=== PATIENT | male | born 1990 | race Caucasian/White ===

== ENCOUNTER 2020-06-20 10:55 | Emergency (ER) | payer OTHER, SELFPAY ==
[2020-06-20 11:11] VITALS: BP 123/76; PULSE 79; RESP 14; TEMP 36.9; O2SAT 99; BMI 22.8
[2020-06-20 12:04] LABS: COVID19 -Nasal RAPID Negative (Negative)
[2020-06-20 12:17] VITALS: BP 113/62; PULSE 72; RESP 18; O2SAT 99
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
== END 2020-06-20 12:25 | disposition home or self-care (01) ==
PROVIDERS: Emergency Medicine; Emergency Provider Nurse Practitioner
DX: Z03.818 Encounter for observation for suspected exposure to other biological agents ruled out (principal)
CPT/HCPCS: 36415; 87635; 99282

== ENCOUNTER 2020-12-04 22:38 | Emergency (ER) | payer OTHER, SELFPAY ==
--- NOTE | 2020-12-04 22:39 | ED.ABDPAIN ---
HPI - Abdominal Pain General Chief Complaint: Abdominal Pain Stated Complaint: lower right abdominal pain x3-4 days Time Seen by Provider: 12/04/20 22:38 Source: patient Mode of arrival: Ambulatory Limitations: no limitations History of Present Illness HPI narrative: 30-year-old male nonsmoker with noncontributory medical history presents with a chief complaint of severe right lower quadrant pain that has been gradually worsening for the past 3 days. He states there is very little provocation or palliation and admits that the pain radiates down into his testicle and around to his right flank. He states it is sharp and stabbing and largely persistent but with episodes of unprovoked increased severity. He denies any history of the same, recent injury, nausea, vomiting, change in appetite nor fever or chills. He denies urinary complaints such as dysuria, frequency, urgency or hematuria. MD complaint: abdominal pain and flank pain Onset (ago): day(s) Pain Consistency: constant and intermittent Location: RLQ Severity: severe Severity scale (1-10): 8 Quality: stabbing and sharp Radiation: R flank Relieving factors: nothing Exacerbating factors: nothing Associated symptoms: denies other symptoms Related Data Home Medications Medication Instructions Recorded Confirmed [ZERTE] #0 05/12/16 Previous Rx's Medication Instructions Recorded polyvinyl alcohol-povidone 1 drp OPHTH PRN PRN #15 ml 05/12/16 [Artificial Tears(pvalch-povid)] ondansetron HCl [Zofran] 4 mg PO Q4HP PRN #20 tab 10/19/16 hydrocodone-acetaminophen 1 tab PO Q4-6H PRN #10 tab 12/05/20 ketorolac 10 mg PO Q6H PRN #14 tab 12/05/20 ondansetron 4 mg PO TID-QID PRN #10 tab 12/05/20 Allergies Allergy/AdvReac Type Severity Reaction Status Date / Time No Known Drug Allergies Allergy Verified 12/04/20 22:54 Review of Systems Constitutional Constitutional: Denies chills, Denies fatigue, Denies fever(s), Denies frequent falls, Denies lethargy and Denies weakness Eyes Eyes: Denies change in vision, Denies eye discharge, Denies irritation and Denies loss of vision ENT Ears, Nose, Mouth, and Throat: Denies change in voice, Denies dizziness, Denies neck pain, Denies sore throat and Denies throat swelling Cardiovascular Cardiovascular: Denies chest pain, Denies irregular heart rhythm, Denies lightheadedness, Denies palpitations, Denies dyspnea, Denies dyspnea on exertion and Denies orthopnea Respiratory Respiratory: Denies cough, Denies dyspnea, Denies dyspnea on exertion and Denies wheezing Gastrointestinal Gastrointestinal: Reports abdominal pain, Denies change in bowel habits, Denies diarrhea, Denies nausea and Denies vomiting Genitourinary Genitourinary: Reports flank pain Genitourinary: Reports flank pain Musculoskeletal Musculoskeletal: Denies neck pain and Denies numbness Integumentary/Breasts Skin/Breast: Denies pruritus, Denies erythema, Denies rash and Denies wounds Neurologic Neurologic: Denies behavioral changes, Denies confusion, Denies dizziness, Denies frequent falls, Denies loss of vision, Denies numbness and Denies weakness Psychiatric Psychiatric: Denies anxiety, Denies behavioral changes, Denies confusion, Denies depression, Denies homicidal ideation and Denies suicidal ideation Endocrine Endocrine: Denies fatigue, Denies flushing and Denies palpitations Hematologic/Lymphatic Hematologic/Lymphatic: Denies easy bruising Allergic/Immunologic Allergic/Immunologic: Denies urticaria, Denies throat swelling and Denies wheezing Patient History Medical History (Updated 12/05/20 @ 00:39 by Rajendra De La Cruz DO) Allergic rhinitis Social History Smoking Status: Never smoker Smoking Status: Never smoker alcohol intake frequency: 0-2 drinks per day Substance Use Type: does not use Exam Narrative Exam Narrative: GENERAL: [30] year old patient appears stated age. Well-nourished, well-developed patient, in mild distress. HEAD: Atraumatic. Normocephalic. EYES: Pupils equal round and reactive. Extraocular motions intact. No scleral icterus. No injection or drainage. ENT: Nose without bleeding, purulent drainage. Throat without erythema, tonsillar hypertrophy or exudate. Airway patent. NECK: Trachea midline. Non tender CARDIOVASCULAR: Regular rate and rhythm without murmurs, gallops, or rubs. RESPIRATORY: Clear to auscultation. Breath sounds equal bilaterally. No wheezes, rales, or rhonchi. GASTROINTESTINAL: Abdomen soft, non-tender, nondistended. : No painful bulging or change with cough when groin examined with patient standing. No testicular pain, swelling, redness EXTREMITIES: No edema or joint tenderness. BACK: Nontender without deformity or crepitance. No flank tenderness. NEURO: AOx3. SKIN: No rash or erythema of visible areas Initial Vital Signs Initial Vital Signs: Vital Signs Temperature 98 F 12/04/20 22:55 Pulse Rate 74 12/04/20 22:55 Respiratory Rate 14 12/04/20 22:55 Blood Pressure 129/70 12/04/20 22:55 Pulse Oximetry 99 12/04/20 22:55 Course Orders Ordered: ED Orders 12/04/20 22:50 Complete Blood Count AUTO DIFF Stat Comprehensive Metabolic Panel Stat 12/04/20 23:13 CT kidney ureter bladder (KUB) Stat Hydrocodone Bitart/Acetaminophen (Hydrocodone/Acet 5/325 Prepack) 1 bottle MISC SEEINSTR ONE Stop: 12/05/20 00:49 Ondansetron HCl (Ondansetron 4 Mg Odt Prepack) 1 bottle MISC SEEINSTR ONE Stop: 12/05/20 00:49 Discontinued Medications Sodium Chloride (Normal Saline 0.9%) 1,000 mls @ 1,000 mls/hr IV BOLUS ONE Stop: 12/05/20 00:07 Last Admin: 12/04/20 23:25 Dose: 1,000 mls/hr Documented by: JESSICA Ketorolac Tromethamine (Ketorolac 60 Mg/2 Ml Vial) 15 mg IV NOW ONE Stop: 12/04/20 23:14 Last Admin: 12/04/20 23:24 Dose: 15 mg Documented by: JESSICA Vital Signs Vital signs: Vital Signs - 8 hr 12/04/20 22:55 12/04/20 23:00 Temperature 98 F Pulse Rate 76 74 Respiratory Rate 17 19 Blood Pressure 129/70 119/70 Pulse Oximetry 99 98 MDM - Abdominal Pain Lab Data Result diagrams: 12/04/20 22:50 12/04/20 22:50 Labs: Lab Results 12/04/20 12/04/20 Range/Units 22:50 22:50 WBC 7.5 (4.5-11.0) X10^3/uL RBC 4.74 (4.5-5.9) X10^6/uL Hgb 15.2 (13.5-17.5) g/dL Hct 43.4 (41-53) % MCV 91.5 (80-100) fL MCH 32.1 (26-34) PG MCHC 35.0 (30-36) % RDW 12.9 (11.6-14.8) % Plt Count 224 (150-400) X10^3/uL Neut % (Auto) 50.4 (50-75) % Lymph % (Auto) 37.1 (25-40) % [place] % (Auto) 7.2 (3-14) % Eos % (Auto) 4.8 H (2-4) % Baso % (Auto) 0.5 (0-2) % Neut # (Auto) 3800 (0693-8621) /uL Lymph # (Auto) 2800 (0928-7323) /uL [place] # (Auto) 500 (0-900) /uL Eos # (Auto) 400 (0-450) /uL Baso # (Auto) 0 (0-100) /uL Sodium 138 (137-145) mmol/L Potassium 3.9 (3.4-5.1) mmol/L Chloride 103 (98-107) mmol/L Carbon Dioxide 27 (22-32) mmol/L BUN 14 (9-20) mg/dL Creatinine 0.87 (0.66-1.25) mg/dL Estimated GFR > 60.0 (>60) mL/min BUN/Creatinine Ratio 16.1 (6-22) Glucose 89 (70-100) mg/dL Calcium 9.7 (8.4-10.2) mg/dL Total Bilirubin 0.4 (0.2-1.3) mg/dL AST 44 (17-59) IU/L ALT 32 (<50) IU/L Alkaline Phosphatase 75 (38-126) U/L Total Protein 7.4 (6.3-8.2) g/dL Albumin 4.4 (3.5-5.0) g/dL Globulin 3.0 (1.7-4.1) g/dL Albumin/Globulin Ratio 1.5 (1.0-2.8) Point of care testing: Urine Dip Bedside Urine Glucose Negative Bedside Urine Bilirubin - Negative Bedside Urine Ketone - Negative Urine Specific [place] 1.020 Bedside Urine Occult Blood - Negative Bedside Urine pH 7.5 Bedside Urine Protein +/- 15 Bedside Urine Urobilinogen - Negative Bedside Urine Nitrite - Negative Bedside Urine Leukocytes - Negative Esterase Imaging Data CT scan - abdomen/pelvis: Radiologist's Impression: No nephrolithiasis or urinary tract obstruction, normal appendix, no radiopaque gallstones MDM Narrative Medical decision making narrative: Multiple etiologies for patient's symptoms considered including: [Kidney stone versus appendicitis versus urinary tract infection versus musculoskeletal versus other] Patient's symptoms improved over duration of stay with above-stated therapies. Findings and discharge diagnosis discussed with patient/family followed by verbalization of understanding Return precautions discussed with patient/family whom verbalize understanding. Discharge Plan Departure Patient Disposition: Home Clinical Impression: Abdominal pain, acute, right lower quadrant Instructions: DI for Abdominal Pain-Adult Activity Restrictions/Additional Instructions: *You have been diagnosed with [right lower quadrant pain with radiation to your back. Urine, blood work and CT scan are very reassuring and no kidney stone or abnormal appendix is noted.] *What to do: *Take medications as directed *Follow up with your primary care provider in 2-3 days, call for an appointment. Let them know you were seen in the Emergency Department and that we ask that you be seen in follow up *Return to ER if you should have any new, worsening or concerning symptoms, such as [worsening pain, persistent vomiting, fever greater than 101 F or other concerning symptoms] Prescriptions: New hydrocodone-acetaminophen 5-325 mg tablet 1 tab PO Q4-6H PRN (Reason: pain) Qty: 10 RF: 0 ketorolac 10 mg tablet 10 mg PO Q6H PRN (Reason: pain) Qty: 14 RF: 0 ondansetron 4 mg tablet,disintegrating 4 mg PO TID-QID PRN (Reason: nausea and vomiting) Qty: 10 RF: 0 No Action [ZERTEC] Qty: 0 RF: 0 polyvinyl alcohol-povidone [Artificial Tears(pvalch-povid)] 15 ML drops 1 drp OPHTH PRN PRNQty: 15 RF: 0 ondansetron HCl [Zofran] 4 MG tablet 4 mg PO Q4HP PRNQty: 20 RF: 0 Stand Alone Forms: Work Release Note
[2020-12-04 22:55] VITALS: BP 129/70; PULSE 74; PULSE 76; RESP 14; RESP 17; TEMP 36.6; O2SAT 99; BMI 23.1
[2020-12-04 23:00] VITALS: BP 119/70; PULSE 74; RESP 19; O2SAT 98
--- NOTE | 2020-12-04 23:13 | DI.CT.S_ITS ---
PROCEDURE: CT KIDNEY URETER BLADDER (KUB) INDICATIONS: right lower quadrant pain TECHNIQUE: Noncontrast 5 mm thick sections acquired from the diaphragms to the symphysis. 5 mm thick coronal and sagittal reformats were then performed. For radiation dose reduction, the following was used: automated exposure control, adjustment of mA and/or kV according to patient size. COMPARISON: None. FINDINGS: Image quality: Excellent. Lung bases: Lung bases are clear. Heart size is normal. Urinary system: Both kidneys are normal in size. No kidney stones. No hydronephrosis or perinephric fat stranding. Both ureters appear non-dilated throughout their expected courses. Bladder wall thickness is normal; no calcified bladder stones. Other solid organs: Liver is normal in size. Gallbladder is within normal limits. Pancreas is normal in contours. Spleen is normal in size. No adrenal nodules. Peritoneum and bowel: Unenhanced bowel loops demonstrate normal wall thickness and caliber. No free fluid or air. The appendix is normal. An Nodes and vessels: No retroperitoneal or mesenteric adenopathy by size criteria. Aorta and inferior vena cava are normal in caliber. Abdominal wall: No ventral hernias. Pelvis: No free pelvic fluid. No inguinal hernias or adenopathy. Bones: No suspicious bony lesions. No vertebral body compression fractures. IMPRESSION: 1. No renal stone or hydronephrosis. 2. Appendix is normal. Dictated by: Carlyn Yang MD, PhD on 12/05/2020 at 7:36 Approved by: Carlyn Yang MD, PhD on 12/05/2020 at 7:38
[2020-12-04 23:16] LABS: Add Manual Diff / Slide Review NO; Basophils Absolute Auto 0 /uL (0-100); Basophils Percent Auto 0.5 % (0-2); Eosinophils Absolute Auto 400 /uL (0-450); Eosinophils Percent Auto 4.8 % (2-4); Hematocrit 43.4 % (41-53); Hemoglobin 15.2 g/dL (13.5-17.5); Lymphocytes Absolute Auto 2800 /uL (1100-4500); Lymphocytes Percent Auto 37.1 % (25-40); Mean Corpuscular Hemoglobin 32.1 PG (26-34); Mean Corpuscular Volume 91.5 fL (80-100); Monocytes Absolute Auto 500 /uL (0-900); Monocytes Percent Auto 7.2 % (3-14); Neutrophils Absolute Auto 3800 /uL (1500-7000); Neutrophils Percent Auto 50.4 % (50-75); Platelet Count 224 X10^3/uL (150-400); Red Blood Cell Count 4.74 X10^6/uL (4.5-5.9); Red Cell Distribution Width 12.9 % (11.6-14.8); White Blood Cell Count 7.5 X10^3/uL (4.5-11.0)
[2020-12-04 23:21] LABS: Alanine Aminotransferase 32 IU/L (<50); Albumin 4.4 g/dL (3.5-5.0); Albumin Globulin Ratio 1.5 (1.0-2.8); Alkaline Phosphatase 75 U/L (38-126); Aspartate Aminotransferase 44 IU/L (17-59); BUN Creatinine Ratio 16.1 (6-22); Bilirubin Total 0.4 mg/dL (0.2-1.3); Blood Urea Nitrogen 14 mg/dL (9-20); Calcium 9.7 mg/dL (8.4-10.2); Carbon Dioxide 27 mmol/L (22-32); Chloride 103 mmol/L (98-107); Estimated Glomerular Filt Rate > 60.0 mL/min (>60); Glucose 89 mg/dL (70-100); HEMOLYSIS 29 (0-50); Potassium 3.9 mmol/L (3.4-5.1); Total Protein 7.4 g/dL (6.3-8.2)
[2020-12-04 23:23] LABS: Sodium 138 mmol/L (137-145)
[2020-12-04] MEDS: KETOROLAC 60 MG/2 ML VIAL 15 MG IV (23:24)
[2020-12-04] MEDS: SODIUM CHLORIDE 0.9% 1,000 ML 1000 ML IV (23:25)
[2020-12-04 23:30] VITALS: BP 112/68; PULSE 66; RESP 15; O2SAT 100
[2020-12-05] VITALS: PULSE 72; RESP 17; O2SAT 97
[2020-12-05 00:30] VITALS: PULSE 68; RESP 17; O2SAT 98
[2020-12-05 01:00] VITALS: PULSE 67; RESP 16; O2SAT 98
[2020-12-05 01:07] VITALS: BP 113/67; PULSE 71; RESP 16; TEMP 36.6; O2SAT 99
[2020-12-05] MEDS: ONDANSETRON 4 MG ODT PREPACK 1 BOTTLE MISC (01:10)
[2020-12-05] MEDS: HYDROCODONE/ACET 5/325 PREPACK 1 BOTTLE MISC (01:10)
== END 2020-12-05 01:24 | disposition home or self-care (01) ==
PROVIDERS: Emergency Provider Emergency Medicine
DX: R10.31 Right lower quadrant pain (principal)
CPT/HCPCS: 36415; 74176; 80053; 81003; 85025; 93005; 96361; 96374; 99284; J1885

== ENCOUNTER → 2020-12-09 16:43 | Outpatient (CLI) | payer OTHER, SELFPAY ==
[2020-12-09 17:19] LABS: Appearance Urine UA CLEAR; Bilirubin Urine UA NEGATIVE (NEGATIVE); Color Urine UA YELLOW; Glucose Urine UA NEGATIVE (Negative); Ketones Urine UA NEGATIVE (NEGATIVE); Leukocyte Esterase Urine UA NEGATIVE (NEGATIVE); Nitrite Urine UA NEGATIVE (Negative); Occult Blood Urine UA NEGATIVE (Negative); Protein Urine UA NEGATIVE (Negative); Urobilinogen Urine UA 0.2 E.U./dL (0.2); pH Urine UA 6.5 (4.5-8.0)
[2020-12-09 18:55] LABS: Urine N gonorrhoeae NOT DETECTED
[2020-12-09 19:30] LABS: Urine Chlamydia NOT DETECTED
== END ==
LOC: LAB 16:44
PROVIDERS: Referring Provider Registered Nurse; Visit Provider Registered Nurse
DX: N45.1 Epididymitis (principal); N50.819 Testicular pain, unspecified
CPT/HCPCS: 81003; 87491; 87591

== ENCOUNTER → 2020-12-13 16:17 | Outpatient (CLI) | payer OTHER, SELFPAY ==
--- NOTE | 2020-12-13 16:18 | DI.US.S_ITS ---
PROCEDURE: US SCROTUM INDICATIONS: testicular pain TECHNIQUE: Real-time scanning was performed of the scrotum and testicles, with image documentation. Color and pulse Doppler interrogation was performed of both testicles. COMPARISON: None. FINDINGS: Right: Testicle is normal in size at 4.9 x 2.9 x 3.0 cm, and homogenous in echotexture. Epididymis is normal in overall size and morphology. Small amount of hydrocele present. No varicocele. Overlying scrotal skin is normal in thickness. Left: Testicle is normal in size at 4.5 x 2.5 x 2.9 cm, and homogeneous in echotexture. Epididymis is normal in overall size and morphology. Small hydrocele and small varicocele also noted which is accentuated on Valsalva maneuver. Doppler: Color and pulse Doppler demonstrate normal and symmetric arterial flow in both testicles. IMPRESSION: Small bilateral hydroceles and small left-sided varicocele No evidence of testicular torsion Dictated by: Dino Cook M.D. on 12/13/2020 at 16:58 Approved by: Dino Cook M.D. on 12/13/2020 at 17:16
== END ==
PROVIDERS: Referring Provider Registered Nurse; Visit Provider Registered Nurse
DX: N50.819 Testicular pain, unspecified (principal); N45.1 Epididymitis; N43.3 Hydrocele, unspecified; I86.1 Scrotal varices
CPT/HCPCS: 76870

== ENCOUNTER 2021-02-05 18:42 | Emergency (ER) | payer OTHER, SELFPAY ==
[2021-02-05 19:02] VITALS: BP 121/64; PULSE 91; RESP 20; TEMP 37.1; O2SAT 100
--- NOTE | 2021-02-05 21:12 | ED.BACK ---
HPI - Back Pain/Injury General Chief Complaint: Back Pain/Injury Stated Complaint: Severe Lower Back Pain, Right Side Time Seen by Provider: 02/05/21 20:58 Source: patient History of Present Illness HPI Narrative: Patient is a 30-year-old male here for evaluation of right sided lower back discomfort that is started a couple days ago. He has had symptoms like this in the past. Does not know a specific incident that caused his symptoms to worsen. Has taken Tylenol and ibuprofen at home with only minimal relief. No urinary symptoms. No fevers. Related Data Home Medications Medication Instructions Recorded Confirmed [ZERTEC] #0 05/12/16 Previous Rx's Medication Instructions Recorded polyvinyl alcohol-povidone 0.5 1 drp OPHTH PRN PRN #15 ml 05/12/16 %-0.6 % eye drops (Artificial Tears (polyvinyl alcohol/povidone)) ondansetron HCl 4 mg tablet 4 mg PO Q4HP PRN #20 tab 10/19/16 (Zofran) albuterol sulfate 90 mcg/actuation 2 puff INHALATION Q6H PRN #6.7 g 12/30/20 aerosol inhaler cyclobenzaprine 10 mg tablet 10 mg PO TID PRN #12 tab 02/05/21 hydrocodone 5 mg-acetaminophen 325 1 tab PO Q8H PRN #10 tab 02/05/21 mg tablet Allergies Allergy/AdvReac Type Severity Reaction Status Date / Time No Known Drug Allergies Allergy Verified 12/30/20 08:52 Review of Systems Constitutional Constitutional: Reports system reviewed and no additional complaints, except as documented Gastrointestinal Gastrointestinal: Denies abdominal pain Genitourinary Genitourinary: Reports system reviewed and no additional complaints, except as documented and Denies dysuria Genitourinary: Denies dysuria Musculoskeletal Musculoskeletal: Reports back pain Integumentary/Breasts Skin/Breast: Reports system reviewed and no additional complaints, except as documented Neurologic Neurologic: Reports system reviewed and no additional complaints, except as documented Hematologic/Lymphatic On Anticoagulants: No Patient History Medical History Allergic rhinitis Allergy-induced asthma (~2010) Epididymitis Testicular pain Social History Smoking Status: Never smoker Smoking Status: Never smoker alcohol intake frequency: 0-2 drinks per day Substance Use Type: does not use Exam Initial Vital Signs Initial Vital Signs: Vital Signs Temperature 98.7 F 02/05/21 19:02 Pulse Rate 91 H 02/05/21 19:02 Respiratory Rate 20 02/05/21 19:02 Blood Pressure 121/64 02/05/21 19:02 Pulse Oximetry 100 02/05/21 19:02 Const General: cooperative HENMT Head: normal to inspection and normocephalic Resp Effort & Inspection: normal respiratory effort Cardio Rate: regular rate Back/Spine/Pelvis Other: Tenderness to palpation paraspinal region right lumbar Skin General: no rashes or lesions noted Neuro General: patient alert and patient awake Extrem General: normal to inspection Psych Appearance: grossly normal Course Orders Ordered: Discontinued Medications Hydromorphone HCl (Hydromorphone 1 Mg Inj) 1 mg IM NOW ONE Stop: 02/05/21 21:13 Last Admin: 02/05/21 21:40 Dose: 1 mg Documented by: MAY Ketorolac Tromethamine (Ketorolac 30 Mg/Ml Vial) 30 mg IM NOW ONE Stop: 02/05/21 21:13 Last Admin: 02/05/21 21:40 Dose: 30 mg Documented by: MAY Vital Signs Vital signs: Vital Signs - 8 hr 02/05/21 19:02 Temperature 98.7 F Pulse Rate 91 H Respiratory Rate 20 Blood Pressure 121/64 Pulse Oximetry 100 MDM - Back Pain/Injury MDM Narrative Medical decision making narrative: History of physical exam is most consistent with musculoskeletal back discomfort. Low suspicion for cauda equina. Low suspicion for fracture. There was no trauma. I feel that we can hold on any radiologic studies for now. Attempt to control the symptoms with medications. Was given return precautions and follow-up instructions. He expressed understanding and agreement. Discharge Plan Departure Patient Disposition: Home Clinical Impression: Lower back pain Instructions: DI for Low Back Pain Activity Restrictions/Additional Instructions: I do recommend that you continue with anti-inflammatories such as Motrin or Naprosyn. You could also use Tylenol in addition to this. Recommend light stretching. Contact your primary provider for follow-up. Return to the emergency department for any new or worsening symptoms. Prescriptions: New cyclobenzaprine 10 mg tablet 10 mg PO TID PRN (Reason: muscle spasm) Qty: 12 RF: 0 hydrocodone-acetaminophen 5-325 mg tablet 1 tab PO Q8H PRN (Reason: pain) Qty: 10 RF: 0 No Action [ZERTEC] Qty: 0 RF: 0 polyvinyl alcohol-povidone [Artificial Tears(pvalch-povid)] 15 ML drops 1 drp OPHTH PRN PRNQty: 15 RF: 0 ondansetron HCl [Zofran] 4 MG tablet 4 mg PO Q4HP PRNQty: 20 RF: 0 albuterol sulfate 90 mcg/actuation HFA aerosol inhaler 2 puff inhalation Q6H PRN (Reason: shortness of breath or wheezing) Qty: 6.7 RF: 0 Referrals: Miscellaneous,Doctor, MD [Primary Care Provider] -
[2021-02-05] MEDS: KETOROLAC 30 MG/ML VIAL IM (21:40)
[2021-02-05] MEDS: HYDROMORPHONE 1 MG INJ IM (21:40)
[2021-02-05 21:54] VITALS: BP 109/68; PULSE 71; RESP 16; O2SAT 99
== END 2021-02-05 21:54 | disposition home or self-care (01) ==
PROVIDERS: Emergency Provider Emergency Medicine
DX: M54.5 Low back pain (principal)
CPT/HCPCS: 96372; 99283; 99284; J1170; J1885

== ENCOUNTER 2021-04-19 19:40 | Emergency (ER) | payer OTHER, SELFPAY ==
[2021-04-19 20:04] VITALS: BP 103/64; PULSE 85; RESP 17; TEMP 36.9; O2SAT 98; BMI 24.3
[2021-04-19 20:29] LABS: COVID19 -Nasal RAPID Negative (Negative)
[2021-04-19 20:54] VITALS: BP 110/68; PULSE 65; RESP 16; O2SAT 98
--- NOTE | 2021-04-19 21:26 | ED.URI ---
HPI - URI/Sore Throat General Chief Complaint: Upper Respiratory Symptoms Stated Complaint: chills,cough,loss of appetite,aches,SOB,exposed Time Seen by Provider: 04/19/21 21:21 Source: patient Mode of arrival: Ambulatory Limitations: no limitations History of Present Illness HPI Narrative: Patient complains of 2 days of cough cold congestion body aches fever and chills. No appetite. Has been able to drink and maintained urine output. History of stress and allergy induced asthma. Has been using his inhaler. Feels weak and tired. His boss has quarantine for the past 2 weeks for COVID. Vital signs reviewed. No tachycardia tachypnea or hypoxia. Clear lung sounds. Not toxic. Patient does have a family doctor. Related Data Home Medications Medication Instructions Recorded Confirmed [ZERTEC] #0 05/12/16 Previous Rx's Medication Instructions Recorded polyvinyl alcohol-povidone 0.5 1 drp OPHTH PRN PRN #15 ml 05/12/16 %-0.6 % eye drops (Artificial Tears (polyvinyl alcohol/povidone)) ondansetron HCl 4 mg tablet 4 mg PO Q4HP PRN #20 tab 10/19/16 (Zofran) albuterol sulfate 90 mcg/actuation 2 puff INHALATION Q6H PRN #6.7 g 12/30/20 aerosol inhaler cyclobenzaprine 10 mg tablet 10 mg PO TID PRN #12 tab 02/05/21 hydrocodone 5 mg-acetaminophen 325 1 tab PO Q8H PRN #10 tab 02/05/21 mg tablet benzonatate 100 mg capsule 100 mg PO BID PRN #20 cap 04/19/21 (Tesgiselle Luis) Allergies Allergy/AdvReac Type Severity Reaction Status Date / Time No Known Drug Allergies Allergy Verified 12/30/20 08:52 Review of Systems Review of Systems Narrative: GENERAL: Complains ofchills, fatigue, malaise, fever, sweats. HEENT: Denies sinus pain, ear pain, sore throat RESPIRATORY: Complainsdyspnea, cough CARDIOVASCULAR: Denies chest pain, palpitations GASTROINTESTINAL: Denies nausea, vomiting, abdominal pain : Denies dysuria, frequency, hematuria MUSCULOSKELETAL: Complains ofmuscle or bony pain SKIN: Denies rash, skin lesions NEUROLOGIC: Denies weakness, numbness ROS Unobtainable: All systems reviewed & are unremarkable except as noted in HPI and below Patient History Medical History Allergic rhinitis Allergy-induced asthma (~2010) Epididymitis Testicular pain Social History Smoking Status: Never smoker Smoking Status: Never smoker alcohol intake frequency: a few times a week Substance Use Type: marijuana Exam Narrative Exam Narrative: GENERAL: in no distress, not toxic not dyspneic HEAD: Normocephalic. EYES: Pupils equal round No scleral icterus. No injection no discharge ENT: Mucous membranes moist. NECK: Trachea midline. CARDIOVASCULAR: Regular rate and rhythm without murmurs RESPIRATORY: Clear to auscultation. Breath sounds equal bilaterally. No wheezes, rales, or rhonchi. Speaks full sentences. Not toxic not dyspneic. No distress. GASTROINTESTINAL: Abdomen soft, non-tender BACK: No flank tenderness. NEURO: AOx4. SKIN: Warm and dry PSYCH: Not anxious, is cooperative Initial Vital Signs Initial Vital Signs: Vital Signs Temperature 98.4 F 04/19/21 20:04 Pulse Rate 85 04/19/21 20:04 Respiratory Rate 17 04/19/21 20:04 Blood Pressure 103/64 04/19/21 20:04 Pulse Oximetry 98 04/19/21 20:04 Course Course Course Narrative: No new issues during course of stay. Orders Ordered: ED Orders 04/19/21 20:10 COVID19 -Nasal swab/Pre-Proc Stat Discontinued Medications Benzonatate (Benzonatate 100 Mg Capsule) 100 mg PO NOW ONE Stop: 04/19/21 21:27 Last Admin: 04/19/21 21:41 Dose: 100 mg Documented by: NICOL Reevaluation(s) Reevaluation #1: Reviewed results with patient. Not toxic. Return precautions reviewed with him. He agrees. Time: 21:34 Vital Signs Vital signs: Vital Signs - 8 hr 04/19/21 20:04 04/19/21 20:54 Temperature 98.4 F Pulse Rate 85 65 Respiratory Rate 17 16 Blood Pressure 103/64 110/68 Pulse Oximetry 98 98 MDM - URI/Sore Throat Differential Diagnosis Differential diagnosis: Likely upper respiratory infection, viral infection and bronchitis Lab Data Labs: Lab Results 04/19/21 Range/Units 20:10 SARS-CoV-2 (PCR) Negative (Negative) MDM Narrative Medical decision making narrative: Appropriate for discharge home. Return precautions reviewed with patient. Exam reassuring. Not toxic. No hypoxia tachycardia no tachypnea. Patient does have family doctor. Not toxic at discharge. He desires discharge home. No blood work or imaging indicated this time. Patient in no distress. Discharge Plan Departure Patient Disposition: Home Clinical Impression: Acute upper respiratory infection Instructions: DI for Viral Upper Respiratory Infection -- Adult Activity Restrictions/Additional Instructions: See family doctor in a week for recheck. Return if worse or questions or concerns. Continue your asthma inhaler as needed for cough and shortness of breath. Prescriptions: New benzonatate [Tessalon Perles] 100 mg capsule 100 mg PO BID PRN (Reason: cough) Qty: 20 RF: 0 No Action [ZERTEC] Qty: 0 RF: 0 polyvinyl alcohol-povidone [Artificial Tears(pvalch-povid)] 15 ML drops 1 drp OPHTH PRN PRNQty: 15 RF: 0 ondansetron HCl [Zofran] 4 MG tablet 4 mg PO Q4HP PRNQty: 20 RF: 0 albuterol sulfate 90 mcg/actuation HFA aerosol inhaler 2 puff inhalation Q6H PRN (Reason: shortness of breath or wheezing) Qty: 6.7 RF: 0 cyclobenzaprine 10 mg tablet 10 mg PO TID PRN (Reason: muscle spasm) Qty: 12 RF: 0 hydrocodone-acetaminophen 5-325 mg tablet 1 tab PO Q8H PRN (Reason: pain) Qty: 10 RF: 0 Referrals: Miscellaneous,Doctor, MD [Primary Care Provider] - Stand Alone Forms: Work Release Note
[2021-04-19] MEDS: BENZONATATE 100 MG CAPSULE PO (21:41)
== END 2021-04-19 21:46 | disposition home or self-care (01) ==
PROVIDERS: Emergency Provider Emergency Medicine
DX: J06.9 Acute upper respiratory infection, unspecified (principal); Z20.822 Contact with and (suspected) exposure to COVID-19
CPT/HCPCS: 87635; 99283; C9803